=== PATIENT | female | born 1995 | race Caucasian/White ===

== ENCOUNTER 2019-11-26 16:25 | Emergency (ER) | payer OTHER ==
[~2019-11-26] VITALS: Ht 160 cm; Wt 63.5 kg
[2019-11-26 17:00] LABS: URINE BILIRUBIN NEGATIVE (Negative); URINE BLOOD NEGATIVE (Negative); URINE CLARITY CLEAR; URINE GLUCOSE-RANDOM* 1+ (Negative); URINE KETONES TRACE (Negative); URINE LEUKOCYTES-REFLEX TRACE (Negative); URINE SPECIFIC GRAVITY 1.015 (1.005-1.035)
[2019-11-26 17:02] LABS: URINE COLOR ORANGE
[2019-11-26 17:04] LABS: SQUAMOUS 0-3 Few /LPF (0-3)
[2019-11-26 17:05] LABS: BACTERIA-REFLEX None Seen /HPF (None Seen); CRYSTALS None Seen /LPF (None Seen); URINE RBC None Seen /HPF (0-2); URINE WBC-REFLEX None Seen /HPF (0-5)
[2019-11-26 17:13] LABS: ABSOLUTE NEUTROPHILS 3.9 thou/uL (1.4-8.2); BASOPHILS 0.6 % (0.0-2.0); EOSINOPHILS 0.8 % (0.0-3.0); HEMATOCRIT 36.7 % (37.0-47.0); HEMOGLOBIN 12.7 gm/dL (12.0-15.0); MCHC 34.5 g/dL (28.0-37.0); MONOCYTES 6.1 % (1.0-8.0); PLATELET COUNT 271 thou/uL (150-400); POLYS 59.5 % (36.0-66.0); RBC 4.08 mil/uL (4.20-5.00); RDW 12.4 % (10.5-14.5); WBC 6.6 thou/uL (4.0-11.0)
[2019-11-26] MEDS ORDERED: EFFEXOR XR150 MG PO (17:22)
[2019-11-26] MEDS ORDERED: LEXAPRO20 MG PO (17:22)
[2019-11-26] MEDS ORDERED: BACTRIM DS TAB1 EAC1 PO (17:23)
[2019-11-26 17:38] LABS: CALCIUM 8.3 mg/dL (8.5-10.1); CREATININE 0.9 mg/dL (0.6-1.0); POTASSIUM 3.6 mmol/L (3.5-5.1)
[2019-11-26 17:42] LABS: ALBUMIN 4.1 g/dL (3.4-5.0); TOTAL BILIRUBIN 0.4 mg/dL (0.2-1.0); TOTAL PROTEIN 7.7 g/dL (6.4-8.2)
[2019-11-26 19:36] VITALS: BP 107/65
== END 2019-11-26 19:39 | disposition home or self-care (01) ==
LOC: ER 16:25
PROVIDERS: Emergency Medicine
DX: R10.31 Right lower quadrant pain (principal); F17.210 Nicotine dependence, cigarettes, uncomplicated; Z79.899 Other long term (current) drug therapy; Z87.440 Personal history of urinary (tract) infections

== ENCOUNTER → 2019-11-26 | Outpatient (CLI) | payer OTHER ==
[~2019-11-26] MED LIST: BACTRIM DS TAB1 EAC1 PO; EFFEXOR XR150 MG PO; LEXAPRO20 MG PO
== END ==
LOC: ULTRA 09:41
DX: R10.13 Epigastric pain (principal); R11.0 Nausea

== ENCOUNTER 2020-01-28 19:21 | Emergency (ER) | payer OTHER ==
[~2020-01-28] VITALS: Ht 157.5 cm; Wt 54.4 kg
[2020-01-28] MEDS ORDERED: LANSOPRAZOLE30 MG PO (19:35)
[2020-01-28] MEDS ORDERED: OXCARBAZEPINE150 MG PO (19:35)
[2020-01-28] MEDS ORDERED: NORETHIND-ETH1 EACH PO (19:35)
[2020-01-28 20:22] VITALS: BP 129/82
== END 2020-01-28 20:21 | disposition home or self-care (01) ==
LOC: ER 19:21
DX: S60.212A Contusion of left wrist, initial encounter (principal); F17.210 Nicotine dependence, cigarettes, uncomplicated; Z79.899 Other long term (current) drug therapy; V49.88XA Car occupant (driver) (passenger) injured in other specified transport accidents, initial encounter; Y93.89 Activity, other specified; Y92.413 State road as the place of occurrence of the external cause; Y99.9 Unspecified external cause status